=== PATIENT | female | born 1985 | race Two or more races ===

== ENCOUNTER 2025-05-11 07:53 | Outpatient (CLI) | payer MEDICAID ==
[2025-05-11 09:00] LABS: Hematocrit 40.8 % (36.0-46.0); Hemoglobin 13.9 g/dL (12.2-16.2); Mean Corpuscular Hemoglobin 30.1 pg (28.0-32.0); Mean Corpuscular Volume 88.1 fL (80.0-100.0); Nucleated Red Blood Cells % 0.0 %
[2025-05-11 09:18] LABS: Alanine Aminotransferase 29 U/L (7-40); Albumin 4.5 g/dL (3.2-4.8); Anion Gap 7 (5-15); BUN/Creatinine Ratio 10.8 (10.0-20.0); Calcium 9.5 mg/dL (8.7-10.4); Carbon Dioxide 25 mmol/L (20-31); Chloride 105 mmol/L (98-107); Glucose 100 mg/dL (74-106); Potassium 3.9 mmol/L (3.5-5.1); Sodium 137 mmol/L (136-145); Total Protein 7.4 g/dL (5.7-8.2)
[2025-05-11 09:19] LABS: Bilirubin, Total 0.4 mg/dL (0.2-1.0)
[2025-05-11 09:23] LABS: Alkaline Phosphatase 127 U/L (46-116); Blood Urea Nitrogen 7 mg/dL (9-23)
[2025-05-11 11:03] LABS: Amphetamine Screen, Urine Neg (NEGATIVE); Barbiturate Scree,Urine Neg (NEGATIVE); Benzodiazephine Screen, Urine Neg (NEGATIVE); Cannabinoid Screen, Urine Neg (NEGATIVE); Cocaine Screen, Urine Neg (NEGATIVE); Opiate Scree,Urine Neg (NEGATIVE); Phencyclidine Screen, Urine Neg (NEGATIVE)
[2025-05-13 01:06] LABS: Chlamydia Trachomatis, NAA Negative (Negative); Neisseria gonorrhoeae, NAA Negative (Negative)
== END 2025-05-11 17:00 | disposition home or self-care (01) ==
LOC: LAB 07:53
PROVIDERS: ATTEND Obstetrics & Gynecology
DX: O23.40 Unspecified infection of urinary tract in pregnancy, unspecified trimester (principal); N39.0 Urinary tract infection, site not specified; Z31.430 Encounter of female for testing for genetic disease carrier status for procreative management; Z36.0 Encounter for antenatal screening for chromosomal anomalies; Z3A.00 Weeks of gestation of pregnancy not specified
CPT/HCPCS: 36415; 80053; 80307; 82951; 83036; 84443; 85025; 86703; 86762; 86780; 86850; 86900; 86901; 87086; 87340

== ENCOUNTER 2025-09-13 09:57 | Observation (INO) | payer MEDICAID ==
[~2025-09-13] VITALS: Ht 170.2 cm; Wt 101.6 kg
[2025-09-13 11:12] LABS: Hematocrit 38.4 % (36.0-46.0); Hemoglobin 12.8 g/dL (12.2-16.2); Mean Corpuscular Hemoglobin 28.8 pg (28.0-32.0); Mean Corpuscular Volume 86.6 fL (80.0-100.0); Nucleated Red Blood Cells % 0.4 %
[2025-09-13 11:23] LABS: Albumin 4.0 g/dL (3.2-4.8); Anion Gap 11 (5-15); Bilirubin, Total 0.4 mg/dL (0.2-1.0); Calcium 9.1 mg/dL (8.7-10.4); Carbon Dioxide 26 mmol/L (20-31); Chloride 102 mmol/L (98-107); Glucose 96 mg/dL (74-106); Potassium 3.6 mmol/L (3.5-5.1); Sodium 139 mmol/L (136-145); Total Protein 7.4 g/dL (5.7-8.2)
[2025-09-13 11:24] LABS: Alanine Aminotransferase 89 U/L (7-40); Alkaline Phosphatase 350 U/L (46-116); BUN/Creatinine Ratio 9.6 (10.0-20.0); Blood Urea Nitrogen < 5 mg/dL (9-23)
[2025-09-13] MEDS ORDERED: URSO300C2 PO (11:35)
[2025-09-13 11:42] LABS: Urine Protein, UAD Negative (Negative)
--- NOTE | 2025-09-13 16:10 | DVHDS2 ---
Physician Discharge Progress N Final Diagnosis: cholestasis Operations or Procedures: Operations or Procedures S: 40y/o 29.0 weeks. Pt sent down from Dr. Rios's office for complaint severe itching in her hands, for the past day. Denies UCs/VB/LOF. Endorses + movement. O: VSS normotensive per RN NST Reactive per RN Bile acids labs to be drawn outpatient, pt has lab slip already Laboratory Tests Test 09/13/25 10:20 09/13/25 10:23 Range/Units White Blood Count 7.6 4.4-10.8 10^3/uL Red Blood Count 4.44 4.0-5.20 10^6/uL Hemoglobin 12.8 12.2-16.2 g/dL Hematocrit 38.4 36.0-46.0 % Mean Corpuscular Volume 86.6 80.0-100.0 fL Mean Corpuscular Hemoglobin 28.8 28.0-32.0 pg Mean Corpuscular Hemoglobin Concent 33.2 32.0-36.0 g/dL Red Cell Distribution Width 13.2 11.8-14.3 % Platelet Count 357 140-450 10^3/uL Mean Platelet Volume 8.4 6.9-10.8 fL Neutrophils (%) (Auto) 73.2 37.0-80.0 % Lymphocytes (%) (Auto) 19.5 10.0-50.0 % Monocytes (%) (Auto) 5.7 0.0-12.0 % Eosinophils (%) (Auto) 0.8 0.0-7.0 % Basophils (%) (Auto) 0.8 0.0-2.0 % Neutrophils # (Auto) 5.6 1.6-8.6 10 ^3/uL Lymphocytes # (Auto) 1.5 0.4-5.4 10 ^3/uL Monocytes # (Auto) 0.4 0-1.3 10 ^3/uL Eosinophils # (Auto) 0.1 0-0.8 10 ^3/uL Basophils # (Auto) 0.1 0-0.2 10 ^3/uL Nucleated Red Blood Cells 0.4 % Sodium Level 139 136-145 mmol/L Potassium Level 3.6 3.5-5.1 mmol/L Chloride Level 102 98-107 mmol/L Carbon Dioxide Level 26 20-31 mmol/L Anion Gap 11 5-15 Blood Urea Nitrogen < 5 L 9-23 mg/dL Creatinine 0.52 L 0.550-1.02 mg/dL Glomerular Filtration Rate Calc 120 >90 mL/min BUN/Creatinine Ratio 9.6 L 10.0-20.0 Serum Glucose 96 74-106 mg/dL Calcium Level 9.1 8.7-10.4 mg/dL Total Bilirubin 0.4 0.2-1.0 mg/dL Aspartate Amino Transferase (AST) 84 H 13-40 U/L Alanine Aminotransferase (ALT) 89 H 7-40 U/L Alkaline Phosphatase 350 H 46-116 U/L Total Protein 7.4 5.7-8.2 g/dL Albumin 4.0 3.2-4.8 g/dL Urine Color Light-yellow Yellow Urine Clarity Clear Clear Urine pH 6.0 5.0-9.0 Urine Specific Buhl 1.009 1.001-1.035 Urine Protein Negative Negative Urine Ketones Negative Negative Urine Blood Negative Negative /uL Urine Nitrite Negative Negative Urine Bilirubin Negative Negative Urine Urobilinogen Normal Negative mg/dL Urine Leukocyte Esterase Negative Negative /uL Urine RBC <1 0 - 4 /hpf Urine Microscopic WBC 1 0-5 /HPF Urine Squamous Epithelial Cells Few <5 /hpf Urine Bacteria Few H None Seen /hpf Urine Mucus Few None Seen Urine Glucose Normal Normal mg/dL A: 40yo IUP at 29.0 weeks gestation. Cholestasis P: D/C Home Dr. Rios consulted, rx sent for actigal 300mg PO BID kick counts/PTL precautions reviewed. Follow-up in three days. Condition on Discharge: Stable Disposition: Home Discharge Instructions: Diet: Regular Activity: No Restrictions, As Tolerated Follow Up/Referral: Follow up FridaySeptember 16 at 12:00 pm in [facility] for [facility] Medications: See med list Follow Up Care: Specialist: Follow up in three days Discharge Statement: "Patient was advised to return to the ER or call 911 if any headaches, dizziness, shortness of breath, chest pain, abdominal pain, bleeding, fevers, or worsening of medical condition. Patient was counseled about treatment plan, medications, possible side effects, patientverbalized understanding. All questions were answered to the best of my ability. This discharge took greater then 30 minutes in planning, reviewing documentation, counseling the patient, and discussing with other team members." Visit Coding OBGYN Date of Service: Sep 13, 2025 Billing Provider: GLENDA WORTHINGTON CNM POT RELINER Common Visit Codes: [id number] OBS CARE (HIGH) POT RELINER Procedure Codes: 60706-27- NON-STRESS TEST GLENDA WORTHINGTON CNM Sep 13, 2025 16:10
== END 2025-09-13 11:58 | disposition home or self-care (01) ==
LOC: LDRP 09:57
PROVIDERS: ADMIT Obstetrics & Gynecology; ATTEND Obstetrics & Gynecology
DX: O26.643 Intrahepatic cholestasis of pregnancy, third trimester (principal); K83.1 Obstruction of bile duct; O09.523 Supervision of elderly multigravida, third trimester; L29.9 Pruritus, unspecified; Z3A.29 29 weeks gestation of pregnancy; Z98.890 Other specified postprocedural states
CPT/HCPCS: 36415; 59025; 80053; 81001; 81002; 85025; 94760; A4649; G0378

== ENCOUNTER 2025-09-16 06:46 | Observation (INO) | payer MEDICAID ==
[~2025-09-16 06:46] MED LIST: URSO300C2 PO
[2025-09-16] MEDS ORDERED: PREN-96 PO (12:48)
--- NOTE | 2025-09-17 07:12 | DVHDS2 ---
Physician Discharge Progress N Final Diagnosis: cholestasis 30wks Operations or Procedures: Operations or Procedures nst reactive reviwed,sono Condition on Discharge: Good Disposition: Home Discharge Instructions: Diet: Regular Activity: No Restrictions, As Tolerated Medications: na Follow Up Care: Specialist: 3d Discharge Statement: "Patient was advised to return to the ER or call 911 if any headaches, dizziness, shortness of breath, chest pain, abdominal pain, bleeding, fevers, or worsening of medical condition. Patient was counseled about treatment plan, medications, possible side effects, patientverbalized understanding. All questions were answered to the best of my ability. This discharge took greater then 30 minutes in planning, reviewing do cumentation, counseling the patient, and discussing with other team members." Visit Coding OBGYN Date of Service: Sep 16, 2025 Billing Provider: LAURIE MUNOZ DO MIXING MACHINE TENDER CORK GASKET Common Visit Codes: [id number] INP/OBS CARE (HIGH) MIXING MACHINE TENDER CORK GASKET Procedure Codes: 90012-32- NON-STRESS TEST LAURIE MUNOZ DO Sep 17, 2025 07:12
== END 2025-09-16 13:07 | disposition home or self-care (01) ==
LOC: LDRP 12:06 → UNDOADMOB 12:06 → LDRP 12:14
PROVIDERS: ADMIT Obstetrics & Gynecology; ATTEND Obstetrics & Gynecology
DX: O26.893 Other specified pregnancy related conditions, third trimester (principal); L29.9 Pruritus, unspecified; Z3A.30 30 weeks gestation of pregnancy; Z98.890 Other specified postprocedural states
CPT/HCPCS: 59025; 81002; 94760; A4649; G0378

== ENCOUNTER 2025-09-19 12:10 | Observation (INO) | payer MEDICAID ==
[~2025-09-19 12:10] MED LIST changes: +PREN-96 PO
--- NOTE | 2025-09-19 14:12 | DVHDS2 ---
Physician Discharge Progress N Final Diagnosis: testing for AMA and r/o cholestasis Operations or Procedures: Operations or Procedures 40yo IUP@30.1wks Bile acid results still pending Pt currently taking actigal 300mg PO BID for itching 09/13/25 labs: elevated LFTs noted VSS NST reactive per RN FKC/PTL/PreE precautions reviewed Dr. Rios consulted, agrees with POC. Condition on Discharge: Stable Disposition: Home Discharge Instructions: Diet: Regular Activity: No Restrictions, As Tolerated Medications: see med list Follow Up Care: Specialist: f/u in 3 days Discharge Statement: "Patient was advised to return to the ER or call 911 if any headaches, dizziness, shortness of breath, chest pain, abdominal pain, bleeding, fevers, or worsening of medical condition. Patient was counseled about treatment plan, medications, possible side effects, patientverbalized understanding. All questions were answered to the best of my ability. This discharge took greater then 30 minutes in planning, reviewing documentation, counseling the patient, and discussing with other team members." Visit Coding OBGYN Date of Service: Sep 19, 2025 Billing Provider: GLENDA WORTHINGTON CNM SUPPLY CHAIN ENGINEER Common Visit Codes: [id number] OBS CARE (HIGH) SUPPLY CHAIN ENGINEER Procedure Codes: 27927-23- NON-STRESS TEST GLENDA WORTHINGTON CNM Sep 19, 2025 14:12
== END 2025-09-19 13:22 | disposition home or self-care (01) ==
LOC: LDRP 12:10
PROVIDERS: ADMIT Obstetrics & Gynecology; ATTEND Obstetrics & Gynecology
DX: O26.893 Other specified pregnancy related conditions, third trimester (principal); L29.9 Pruritus, unspecified; O09.523 Supervision of elderly multigravida, third trimester; Z3A.30 30 weeks gestation of pregnancy; Z98.890 Other specified postprocedural states
CPT/HCPCS: 59025; 81002; 94760; A4649; G0378

== ENCOUNTER 2025-09-23 10:09 | Observation (INO) | payer MEDICAID ==
[~2025-09-23] VITALS: Ht 172.7 cm; Wt 102.5 kg
[2025-09-23 11:41] LABS: Hematocrit 36.3 % (36.0-46.0); Hemoglobin 11.9 g/dL (12.2-16.2); Mean Corpuscular Hemoglobin 28.1 pg (28.0-32.0); Mean Corpuscular Volume 85.4 fL (80.0-100.0); Nucleated Red Blood Cells % 0.2 %
[2025-09-23 11:57] LABS: INR 0.96 (0.9-1.15); Partial Thromboplastin Time 25.5 SEC (24.5-34.5); Prothrombin Time 10.2 sec (9.3-11.8)
[2025-09-23] MEDS: ACETAMINOPHEN 325 MG TAB PO PRN (12:00)
[2025-09-23 12:01] LABS: Alanine Aminotransferase 26 U/L (7-40); Albumin 3.6 g/dL (3.2-4.8); Anion Gap 9 (5-15); BUN/Creatinine Ratio 10.9 (10.0-20.0); Blood Urea Nitrogen < 5 mg/dL (9-23); Calcium 8.8 mg/dL (8.7-10.4); Carbon Dioxide 24 mmol/L (20-31); Chloride 105 mmol/L (98-107); Glucose 99 mg/dL (74-106); Potassium 3.3 mmol/L (3.5-5.1); Sodium 138 mmol/L (136-145); Total Protein 6.8 g/dL (5.7-8.2); Uric Acid 4.1 mg/dL (3.1-7.8)
[2025-09-23] MEDS: hydrALAZINE HCL 20 MG/ML VL IV ONE (12:01)
[2025-09-23 12:02] LABS: Alkaline Phosphatase 254 U/L (46-116); Bilirubin, Total 0.3 mg/dL (0.2-1.0)
[2025-09-23] MEDS: LACTATED RINGER'S 1,000 ML IV ONE (12:02)
[2025-09-23 12:12] LABS: Urine Protein, UAD TRACE (Negative)
[2025-09-23 12:50] LABS: Protein, Urine 29.9 mg/dL (1-14)
[2025-09-23] MEDS: BETAMETHASONE ACET (30mg/5ml) 5ml Vial 6mg/ml IM SCH (12:53)
--- NOTE | 2025-09-23 13:55 | DVH ---
LIMITED OB ULTRASOUND > 14 WKS: HISTORY: r/o pih, cody TECHNIQUE: Multiple real-time grayscale images of the gravid uterus with duplex Doppler color flow and M-mode spectral analysis. TRANSDUCER: Abdomen FINDINGS: IUP single live fetus at 31 weeks 1 day plus or minus 2 weeks 1 day based on composite averages of the BPD, head circumference, abdominal circumference and femur length Estimated weight 1803 g plus or minus 270.45 g 4 lb 0 oz +/-10 oz grams heart rate 147 beats per minute JEROD 17.18 cm mvp: 7.66 cm Cervix 3.03 cn Cephalic Presentation Posterior fundal Grade 2 Placenta without previa or abruption. GESTATIONAL DATING: BPD: 7.72 cm, 31 WEEKS 0 DAYS, 33.7%, RANGE 27 WEEKS 6 DAYS -34 WEEKS 0 DAYS HC: 27.50 cm, 30 weeks 0 days, less than 3%, range 27 weeks 0 days - 33 weeks 0 days AC: 20.3 cm, 32 weeks 2 days, 80.2%, range 29 weeks 3 days- 35 weeks 2 days FL: 5.98 cm, 31 weeks 1 day, 35 0.6%, range 28 weeks 1 day- 34 weeks 1 day CI: 84.56 range 70.00-86.00 FL/BPD 77.46 range 71 0.0 - 87.0 HC/AC: 0.97 range 0.96 - 1.17 FL/AC: 21.13 range 20.00 - 24.00 FL/HC: 21.75 range 19.27 -21.30 IMPRESSION: 1. IUP single live fetus at 31.1 AUA corresponding to an JESUS of 11/24/2025 2. FHR: 147 bpm
--- NOTE | 2025-09-23 14:38 | DVHDS2 ---
Physician Discharge Progress N Final Diagnosis: gest htn 31 wks Operations or Procedures: Operations or Procedures nst reactive reviwed,sono Condition on Discharge: Good Disposition: Home Discharge Instructions: Diet: Consistent carbohydrate Activity: No Restrictions, As Tolerated Medications: na Follow Up Care: Specialist: 1day for celesatone Discharge Statement: "Patient was advised to return to the ER or call 911 if any headaches, dizziness, shortness of breath, chest pain, abdominal pain, bleeding, fevers, or worsening of medical condition. Patient was counseled about treatment plan, medications, possible side effects, patientverbalized understanding. All questions were answered to the best of my ability. This discharge took greater then 30 minutes in planning, reviewing documentation, counseling the patient, and discussing with other team members." Visit Coding OBGYN Date of Service: Sep 23, 2025 Billing Provider: LAURIE MUNOZ DO IP COUNSEL Common Visit Codes: [id number] OBS CARE (HIGH) IP COUNSEL Procedure Codes: 39546-75- NON-STRESS TEST LAURIE MUNOZ DO Sep 23, 2025 14:38
[2025-09-23] MEDS: LABETALOL HCL 200 MG TAB PO ONE (16:45)
[2025-09-23] MEDS ORDERED: LABE100T7 PO (17:03)
[2025-09-24] MEDS ORDERED: METF-370 PO ×2 (07:40)
[2025-09-24] MEDS ORDERED: NITR-87 PO ×2 (07:41)
[2025-09-24] MEDS ORDERED: BETAMETHASONE ACET (30mg/5ml) 5ml Vial 6mg/ml IM SCH (10:00)
[2025-09-29] MEDS ORDERED: PANT1POW XX (10:31)
[2025-09-29] MEDS ORDERED: FAMO20TA10 PO (10:31)
== END 2025-09-23 18:14 | disposition home or self-care (01) ==
LOC: UNDOADMOB 10:09 → LDRP 10:09
PROVIDERS: ADMIT Obstetrics & Gynecology; ATTEND Obstetrics & Gynecology
DX: O13.3 Gestational [pregnancy-induced] hypertension without significant proteinuria, third trimester (principal); Z3A.31 31 weeks gestation of pregnancy; Z98.890 Other specified postprocedural states; Z79.899 Other long term (current) drug therapy
CPT/HCPCS: 36415; 59025; 76805; 80053; 81001; 81002; 82570; 82948; 82962; 84156; 84550; 85025; 85610; 85730; 94760; 96361; 96372; 96374; A4649; G0378; J0360; J0702; 96360

== ENCOUNTER 2025-09-24 06:30 | Observation (INO) | payer MEDICAID ==
[~2025-09-24] VITALS: Ht 172.7 cm; Wt 102.5 kg
[~2025-09-24 06:30] MED LIST changes: +LABE100T7 PO
[2025-09-24] MEDS ORDERED: METF-370 PO ×2 (07:40)
[2025-09-24] MEDS ORDERED: NITR-87 PO ×2 (07:41)
[2025-09-24] MEDS: BETAMETHASONE ACET (30mg/5ml) 5ml Vial 6mg/ml IM ONE (07:57)
--- NOTE | 2025-09-26 15:17 | DVHDS2 ---
Physician Discharge Progress N Final Diagnosis: PTL,PIH,GDM,CHOLESTASIS 31WKS Operations or Procedures: Operations or Procedures NST REACTIVE REVIWED,SONO Condition on Discharge: Good Disposition: Home Discharge Instructions: Diet: Regular, Consistent carbohydrate Activity: No Restrictions, As Tolerated Medications: NA Follow Up Care: Specialist: 1D Discharge Statement: "Patient was advised to return to the ER or call 911 if any headaches, dizziness, shortness of breath, chest pain, abdominal pain, bleeding, fevers, or worsening of medical condition. Patient was counseled about treatment plan, medications, possible side effects, patientverbalized understanding. All questions were answered to the best of my ability. This discharge took greater then 30 minutes in planning, reviewing documentation, counseling the patient, and discussing with other team members." Visit Coding OBGYN Date of Service: Sep 24, 2025 Billing Provider: LAURIE MUNOZ DO SENIOR BENEFITS SPECIALIST Common Visit Codes: [id number] OBS CARE (HIGH) SENIOR BENEFITS SPECIALIST Procedure Codes: 41700-40- NON-STRESS TEST LAURIE MUNOZ DO Sep 26, 2025 15:17
[2025-09-29] MEDS ORDERED: FAMO20TA10 PO (10:31)
[2025-09-29] MEDS ORDERED: PANT1POW XX (10:31)
== END 2025-09-24 08:03 | disposition home or self-care (01) ==
LOC: LDRP 06:30
PROVIDERS: ADMIT Obstetrics & Gynecology; ATTEND Obstetrics & Gynecology
DX: O60.03 Preterm labor without delivery, third trimester (principal); Z3A.31 31 weeks gestation of pregnancy; Z98.890 Other specified postprocedural states; Z79.899 Other long term (current) drug therapy
CPT/HCPCS: 59025; 81002; 82948; 82962; A4649; G0378

== ENCOUNTER 2025-09-27 07:18 | Observation (INO) | payer MEDICAID ==
[~2025-09-27 07:18] MED LIST changes: +METF-370 PO; +NITR-87 PO
--- NOTE | 2025-09-27 14:28 | DVHDS2 ---
Physician Discharge Progress N Final Diagnosis: gdm,cholestsis 31wks Operations or Procedures: Operations or Procedures nst reactive reviwed,sono Condition on Discharge: Good Disposition: Home Discharge Instructions: Diet: Consistent carbohydrate, Cardiac 2g Na,low cholest Activity: No Restrictions, As Tolerated Medications: na Follow Up Care: Specialist: 2d Discharge Statement: "Patient was advised to return to the ER or call 911 if any headaches, dizziness, shortness of breath, chest pain, abdominal pain, bleeding, fevers, or worsening of medical condition. Patient was counseled about treatment plan, medications, possible side effects, patientverbalized understanding. All questions were answered to the best of my ability. This discharge took greater then 30 minutes in planning, reviewing documentation, counseling the patient, and discussing with other team members." Visit Coding OBGYN Date of Service: Sep 27, 2025 Billing Provider: LAURIE MUNOZ DO APPRENTICE PAINTER HAND Common Visit Codes: [id number] OBS CARE (HIGH) APPRENTICE PAINTER HAND Procedure Codes: 20003-11- NON-STRESS TEST LAURIE MUNOZ DO Sep 27, 2025 14:28
[2025-09-29] MEDS ORDERED: FAMO20TA10 PO (10:31)
[2025-09-29] MEDS ORDERED: PANT1POW XX (10:31)
== END 2025-09-27 09:33 | disposition home or self-care (01) ==
LOC: LDRP 08:05 → UNDOADMOB 08:05 → LDRP 08:11
PROVIDERS: ADMIT Obstetrics & Gynecology; ATTEND Obstetrics & Gynecology
DX: O24.419 Gestational diabetes mellitus in pregnancy, unspecified control (principal); O26.643 Intrahepatic cholestasis of pregnancy, third trimester; K83.1 Obstruction of bile duct; Z3A.31 31 weeks gestation of pregnancy; Z98.890 Other specified postprocedural states
CPT/HCPCS: 59025; 81002; 82948; 82962; 94760; A4649; G0378